=== PATIENT | female | born 1980 | race Two or more races ===

== ENCOUNTER 2017-05-08 21:25 | Emergency (ER) | payer OTHER ==
[2017-05-08 21:27] VITALS: BP 136/73; PULSE 97; RESP 16; TEMP 98.5; O2SAT 95
--- NOTE | 2017-05-09 01:18 | PD ---
HPI Chief Complaint: Related Problem Time Seen by Provider: 00:44 Travel History International Travel<30 days: No Contact w/Intl Traveler<30days: No Traveled to known affect area: No History of Present Illness HPI The patient is a 36 year old female who presents to the [facility] emergency department with a history of reportedly missing her period approximately 5 days ago. She took an [id number]-[id number] test which was positive. The patient reports that yesterday she began to have some pink discharge and then today spotting. The patient is reportedly a G6, P3. The patient reports having a history of 3 vaginal deliveries. She also reports having one blighted ovum and 1 ectopic years ago that was treated with medications. The patient was seen at the [facility] emergency department and had laboratory studies done there. They recommended an ultrasound, however ultrasound was not available at that facility. The patient was transferred to this facility for evaluation. The patient's quantitative beta hCG was 134. The patient reports that her blood type is A+. On review of systems, the patient denies any recent fevers, cough, congestion, neck pain, chest pain, shortness of breath, abdominal pain, vomiting, diarrhea, urinary symptoms, or neurologic symptoms. PFSH Past Medical History Narrative Medical The patient's past medical history is significant for having an ectopic medically manage previously, asthma, gestational diabetes Asthma: Yes Diabetes: Yes (gestatinal) Diminished Hearing: No Respiratory: Yes (asthma) ?: : 6 Para: 4 Ectopic : Yes Past Surgical History Narrative Surgical The patient's past surgical history is significant for wisdom teeth extraction, breast reduction. Oral Surgery: Yes (wisdom) Other Surgery: Yes (breast reduction) Social History Alcohol Use: No Tobacco Use: Yes (5 cigarettes per day) Substance Use: No Allergies-Medications (Allergen,Severity, Reaction): Coded Allergies: No Known Allergies (Unverified , 05/08/17) Reported Meds & Prescriptions Reported Meds & Active Scripts Active No Active Prescriptions or Reported Medications Review of Systems Except as stated in HPI: all other systems reviewed are Neg General / Constitutional: No: Fever Eyes: No: Visual changes HENT: No: Headaches Cardiovascular: No: Chest Pain or Discomfort Respiratory: No: Shortness of Breath Gastrointestinal: No: Abdominal Pain Genitourinary: Positive: Pelvic Pain, Vaginal Bleeding, No: Dysuria Musculoskeletal: No: Pain Skin: No Rash Neurologic: No: Weakness Psychiatric: No: Depression Endocrine: No: Polydipsia Hematologic/Lymphatic: No: Easy Bruising Physical Exam Narrative General: The patient is a well-developed nourished female in no acute distress Head and Neck exam: Head is normocephalic atraumatic. Eyes: EOMI, pupils are equal round and reactive to light. Nose: Midline septum with pink mucous membranes Mouth: Dentition unremarkable. Moist mucus membranes. Posterior oropharynx is not erythematous. No tonsillar hypertrophy. Uvula midline. Airway patent. Neck: No palpable lymphadenopathy. No nuchal rigidity. No thyromegaly. Cardiovascular: Regular rate and rhythm without murmurs, gallops, or rubs. Lungs: Clear to auscultation bilaterally. No wheezes, rhonchi, or rales. Abdomen: Soft, without tenderness to palpation in all 4 quadrants of the abdomen. No guarding, rebound, or rigidity. Normal bowel sounds are audible. No tenderness on palpation of McBurney's point. Extremities: No clubbing, cyanosis, or edema. 2+ pulses in all 4 extremities. Back: No costovertebral angle tenderness to palpation. Neurologic Exam: Grossly nonfocal. Skin Exam: No rash noted. Intact skin that is warm and dry. The patient reports that a pelvic examination was not done at the other facility. The patient had a pelvic examination done today by me. Gynecologic exam: The patient was placed in the dorsal lithotomy position. Her external genitalia were examined. She had no evidence of rash or lesions. The speculum was placed into her vagina and the cervix was identified. She had a dark Brown older appearing blood present in the posterior vaginal vault. No cervical friability. On Bimanual exam: she has no cervical motion tenderness. The cervix was closed , long and firm on palpation. No adnexal tenderness or prominence noted on palpation. No uterine tenderness or enlargement noted on palpation. Data Data Last Documented VS Vital Signs Date Time Temp Pulse Resp B/P (MAP) Pulse Ox O2 Delivery O2 Flow Rate FiO2 05/08/17 21:27 98.5 97 16 136/73 (94) 95 Room Air Orders Orders Us Pelvis (Ques Pr/Ect)W Trans (05/09/17 00:44) Complete Rh (05/09/17 00:45) Gc And Chlamydia Pcr (05/09/17 02:02) Wet Prep Profile (05/09/17 02:02) Labs Laboratory Tests Test 05/09/17 02:10 Clue Cells (Wet Prep) PRESENT Vaginal Trichomonas (Wet Prep) NONE SEEN Vaginal Yeast (Wet Prep) NONE SEEN MDM Medical Decision Making Medical Screen Exam Complete: Yes Emergency Medical Condition: Yes Medical Record Reviewed: Yes Differential Diagnosis Ectopic , versus threatened miscarriage, versus subchorionic hemorrhage Narrative Course During the course of the patients emergency department visit, the patients history, examination, and differential diagnosis were reviewed with the patient. The patient had IV access obtained and blood work sent for analysis. The patient was placed on a surveillance monitor with oximetry and blood pressure monitoring. The patient's record from [place] was reviewed. The patient had a white count done earlier today that was 10.8, hemoglobin 12.5, platelets 392 with a differential remarkable for neutrophils of 63, lymphocytes 25.8. Urinalysis showed rare bacteria, small occult blood, base metabolic profile was unremarkable, quantitative beta hCG was 134. An Rh blood type was ordered to be done to confirm that the patient is Rh+. The patient's blood type is confirmed to be Rh+. Radiology studies were reviewed and remarkable for an ultrasound that reveals a suspected recent miscarriage, no intrauterine or definite ectopic. Cyst of the right ovary most typical for this luteal cyst, trace fluid in the pelvic cul-de-sac. The patient was instructed to follow-up with the global sales director on-call. The patient is instructed to have a repeat quantitative beta hCG done in 2 days to evaluate for a rise in her beta-hCG versus a fall consistent with miscarriage. The patient was instructed to report back immediately if she develops any abdominal pain. The patient is resting comfortably and feels better, is alert and in no distress. The patients results and examination findings were discussed with the patient. The repeat examination is unremarkable and benign. The history, exam, diagnostic testing, and current condition do not suggest any significant pathology to warrant further testing, continued ED treatment, admission, or surgical evaluation at this point. The vital signs have been stable. The patient does not have uncontrollable pain, intractable vomiting, or other significant symptoms. The patient's condition is stable and appropriate for discharge. The patient will pursue further outpatient evaluation with a primary care physician or other designated or consulting physician as indicated in the discharge instructions. The patient expressed understanding and was agreeable with this plan. Diagnosis Primary Impression: Threatened miscarriage Referrals: Kallie Sawant MD Patient Instructions: General Instructions, Threatened Miscarriage (ED) Scripts No Active Prescriptions or Reported Meds Disposition: 01 DISCHARGE HOME Condition: Isa Marshall MD May 09, 2017 01:18
--- NOTE | 2017-05-09 01:55 | RADRPT ---
EXAM DATE/TIME: 05/09/2017 00:58 [facility] COMPARISON: No previous studies available for comparison. INDICATIONS : Ectopic. LAB(S): Beta-hC MEDICAL HISTORY : . Asthma. Blighted ovum. SURGICAL HISTORY : Breast reduction. [place] teeth removed. ENCOUNTER: Initial ACUITY: 1 day PAIN SCORE: 0/10 LOCATION: Bilateral pelvis MEASUREMENTS: UTERUS: 8.2 x 6.8 x 4.6 cm ENDOMETRIAL STRIPE: 17 mm RIGHT OVARY: 3.7 x 2.7 x 1.8 cm LEFT OVARY: 3.0 x 2.0 x 1.8 cm FREE FLUID: Yes posterior cul de sac. FINDINGS: UTERUS: There is endometrial thickening but no perceptible intrauterine gestational sac, yolk sac or po le. Small fluid and/or hemorrhage seen in the uterine cavity. RIGHT OVARY: 22 x 14 x 12 mm cyst with small debris. LEFT OVARY: A few subcentimeter follicles. MISCELLANEOUS: Trace free fluid in the pelvic cul-de-sac. CONCLUSION: 1. Suspected recent miscarriage. No intrauterine or definite ectopic. 2. Cyst of the right ovary most typical of a corpus luteal cyst. 3. Trace free fluid in the pelvic cul-de-sac. Rafy Fajardo MD on May 09, 2017 at 1:51 Board Certified Radiologist. This report was verified electronically.
== END 2017-05-09 03:41 | disposition home or self-care (01) ==
LOC: NEPC 21:25
DX: O20.0 Threatened abortion (principal); O24.419 Gestational diabetes mellitus in pregnancy, unspecified control; J45.909 Unspecified asthma, uncomplicated; O99.331 Smoking (tobacco) complicating pregnancy, first trimester
CPT/HCPCS: 76700; 76817; 80048; 81001; 84702; 85025; 86901; 87210; 87491; 87591; 99283; 99284

== ENCOUNTER 2017-05-13 12:33 | Emergency (ER) | payer OTHER ==
[~2017-05-13] VITALS: Ht 154.9 cm; Wt 52.0 kg
[2017-05-13 12:35] VITALS: BP 118/68; PULSE 104; RESP 14; TEMP 98.8; O2SAT 99
--- NOTE | 2017-05-13 14:16 | PD ---
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 This patient was seen here 5 days ago and had extensive THERAPEUTIC SPECIALIST workup. She had a titer of 134 and ultrasound that didn't reveal any IUP or obvious ectopic, miscarriage was suspected after the workup. She was supposed to get a repeat beta titer in 2 days but she did not. She did not follow-up with [facility] as requested. Instead she came back here 5 days later. She has occasional left lower quadrant cramping. Not as bad as prior. Symptoms severity is mild to moderate. No alleviating factors. No exacerbating factors. No fever. Has some old brown blood clot occasionally in small amounts PFSH Past Medical History Asthma: Yes Diabetes: Yes (gestatinal) Diminished Hearing: No Respiratory: Yes (asthma) ?: Unknown LMP: 03/29/17 : 6 Para: 4 Ectopic : Yes Past Surgical History Oral Surgery: Yes (wisdom) Other Surgery: Yes (breast reduction) Social History Alcohol Use: No Tobacco Use: Yes (5 cigarettes per day) Substance Use: No Allergies-Medications (Allergen,Severity, Reaction): Coded Allergies: No Known Allergies (Unverified , 05/13/17) Reported Meds & Prescriptions Reported Meds & Active Scripts Active No Active Prescriptions or Reported Medications Review of Systems General / Constitutional: No: Fever Eyes: No: Visual changes HENT: No: Headaches Cardiovascular: No: Chest Pain or Discomfort Respiratory: No: Shortness of Breath Gastrointestinal: No: Abdominal Pain Genitourinary: Positive: Pelvic Pain, Vaginal Bleeding, No: Dysuria Musculoskeletal: No: Pain Skin: No Rash Neurologic: No: Weakness Psychiatric: No: Depression Endocrine: No: Polydipsia Hematologic/Lymphatic: No: Easy Bruising Physical Exam Narrative GENERAL: Well-nourished, well-developed patient in no apparent distress. SKIN: Focused skin assessment reveals no rash and nodules. Skin is Warm and dry. HEAD: Atraumatic. Normocephalic. EYES: Pupils equal and round. No scleral icterus. No injection or drainage. ENT: No nasal bleeding or discharge. Mucous membranes pink and moist. NECK: Trachea midline. No JVD. CARDIOVASCULAR: Regular rate and rhythm. No murmur appreciated. RESPIRATORY: No accessory muscle use. Clear to auscultation. Breath sounds equal bilaterally. GASTROINTESTINAL: Abdomen soft, non-tender, nondistended. Hepatic and splenic margins not palpable. MUSCULOSKELETAL: No obvious deformities. No clubbing. No cyanosis. No edema. NEUROLOGICAL: Awake and alert. No obvious cranial nerve deficits. Motor grossly within normal limits. Normal speech. PSYCHIATRIC: Appropriate mood and affect; insight and judgment normal. Data Data Last Documented VS Vital Signs Date Time Temp Pulse Resp B/P (MAP) Pulse Ox O2 Delivery O2 Flow Rate FiO2 05/13/17 13:51 16 05/13/17 12:35 98.8 104 118/68 (85) 99 Orders Orders Beta Hcg (Quant/Titer) (05/13/17 14:09) Labs Laboratory Tests Test 05/13/17 14:15 Human Chorionic Gonadotropin, Quant 112 [facility] Medical Decision Making Medical Screen Exam Complete: Yes Emergency Medical Condition: Yes Medical Record Reviewed: Yes Differential Diagnosis Miscarriage, threatened , ectopic Narrative Course I have reviewed the patient's electronic medical record. Reviewed her labs and ultrasound and workup from 5 days ago. Today's repeat beta titer is 112 Her presentation does seem most consistent with miscarriage. On reexam she has a soft benign nontender abdomen and does not seem to be in distress or pain I reiterated the importance of outpatient THERAPEUTIC SPECIALIST follow-up We discussed ectopic precautions. If she has worsening she should return. Diagnosis Primary Impression: Miscarriage Additional Instructions: Follow up with product safety officer Use ectopic precautions Return for worsening pain or bleeding Med/Other Pt SpecificInfo: Other Scripts No Active Prescriptions or Reported Meds Disposition: DISCHARGE HOME Condition: Stable Stephon Rodgers MD May 13, 2017 14:16
[2017-05-13 14:56] LABS: BETA HCG QUANT 112 MIU/ML (0-5)
== END 2017-05-13 15:36 | disposition home or self-care (01) ==
LOC: NEPD 12:33
DX: O03.9 Complete or unspecified spontaneous abortion without complication (principal); Z72.0 Tobacco use
CPT/HCPCS: 84702; 99283